=== PATIENT | male | born 1965 | race African-American/Black ===

== ENCOUNTER 2021-11-26 22:43 | Emergency (ER) | payer OTHER, SELFPAY ==
[2021-11-26 23:06] LABS: #Basophils 0.1 thou/uL (0.0-0.2); #Lymphocytes 2.3 thou/uL (1.20-3.40); #Monocytes 0.4 thou/uL (0.11-0.59); #Neutrophils 4.6 thou/uL (1.40-6.50); %Basophils 0.8 % (0.0-1.0); %Eosinophils 0.3 % (0.0-10.0); %Lymphocytes 31.4 % (21.0-51.0); %Monocytes 5.4 % (0.0-10.0); %Neutrophils 62.2 % (42.0-75.0); Hemoglobin 15.9 g/dL (14.0-18.0); Mean Corpuscular HGB CONC 33.3 g/dL (32.0-36.0); Mean Corpuscular Hemoglobin 30.1 pg (27.0-31.0); Mean Corpuscular Volume 90.5 fL (78.0-98.0); Mean Platelet Volume 7.3 fL (7.4-10.4); Platelet Count 265 thou/uL (130-400); Red Blood Cell (RBC) Count 5.28 mill/uL (4.70-6.10); White Blood Cell (WBC) Count 7.4 thou/uL (4.8-10.8)
[2021-11-26 23:25] LABS: Acetaminophen Less than 10.0 mcg/mL (10.0-30.0); Alcohol 248 mg/dL (Less than 10); Salicylate Less than 8.0 mg/dL (15.0-30.0)
[2021-11-26 23:27] LABS: ALT (SGPT) 20 U/L (8-55); AST (SGOT) 31 U/L (5-34); Albumin 4.5 g/dL (3.5-5.0); Alcohol 246 mg/dL (Less than 10); Alkaline Phosphatase 89 U/L (40-110); Anion Gap 17 mmol/L (10-20); BUN (Urea Nitrogen) 9 mg/dL (8.4-25.7); Bilirubin, Total 0.5 mg/dL (0.2-1.2); Calc. Creatinine Clearance 0 mL/min (70-130); Calcium 9.4 mg/dL (7.8-10.44); Carbon Dioxide 20 mmol/L (22-29); Chloride 107 mmol/L (98-107); Estimated GFR 74; Globulin 3.1 g/dL (2.4-3.5); Glucose 101 mg/dL (70-105); Potassium 4.2 mmol/L (3.5-5.1); Protein, Total 7.6 g/dL (6.0-8.3); Sodium 140 mmol/L (136-145)
[2021-11-27 00:01] LABS: Amphetamine Not Detected (NotDetected); Barbiturates Screen Not Detected (NotDetected); Benzodiazepine Screen Not Detected (NotDetected); Cocaine Metabolite Screen Not Detected (NotDetected); Methadone Not Detected (NotDetected); Methamphetamine Not Detected (NotDetected); Opiate Screen Not Detected (NotDetected); Oxycodone Screen Not Detected (NotDetected); Phencyclidine (PCP) Not Detected (NotDetected); THC/Cannabinoid Screen Not Detected (NotDetected); Tricyclic Screen Not Detected (NotDetected)
[2021-11-27 21:58] LABS: SARS-CoV-2 NAA Rapid Test Not Detected (NotDetected)
[2021-11-28] MEDS ORDERED: Gabapentin 300 MG CAP PO SCH (16:15)
[2021-11-29] MEDS ORDERED: Gabapentin 300 MG CAP PO SCH ×2 (08:45)
== END 2021-11-29 12:03 ==
LOC: ERS 22:43
DX: R45.851 Suicidal ideations (principal); R45.850 Homicidal ideations; F10.10 Alcohol abuse, uncomplicated; K21.9 Gastro-esophageal reflux disease without esophagitis; F17.220 Nicotine dependence, chewing tobacco, uncomplicated; Z20.822 Contact with and (suspected) exposure to COVID-19
CPT/HCPCS: 36415; 80053; 80306; 80307; 85025; 99285